=== PATIENT | male | born 1955 | race Caucasian/White ===

== ENCOUNTER 2024-10-12 06:48 | Outpatient (OUT) | payer MEDICARE, SELFPAY ==
--- NOTE | 2024-10-12 06:53 | US_ITS ---
The [address] [address] Patient Name: IGNACIO BURRIS MRN: [id number] date: 1955 Sex: M Assigned Patient Location: [place] Current Patient Location: Accession/Order Number: [id number] Exam Date: 10/12/2024 07:03 Report Date: 10/12/2024 11:53 At the request of: KYLE FOY Procedure: US aorta EXAM: US aorta HISTORY: Smoking. TECHNIQUE: Ultrasound was performed of the abdominal aorta. COMPARISON: None. FINDINGS: AORTA: Proximal 3.6 cm; mid 3.2 cm; distal 3.1 cm ILIAC ARTERIES: Maximum diameter 1.5 cm on right, 1.7 cm on left. OTHER: Negative. US/US aorta IMPRESSION: 1. No appreciable aneurysmal dilation of the distal abdominal aorta. Electronically authenticated by: YAIMA CARTAGENA Date: 10/12/2024 11:53
--- NOTE | 2024-10-12 06:53 | CT_ITS ---
[address] [address] Patient Name: IGNACIO BURRIS MRN: [id number] date: 1955 Sex: M Assigned Patient Location: [place] Current Patient Location: Accession/Order Number: [id number] Exam Date: 10/12/2024 07:01 Report Date: 10/13/2024 06:23 At the request of: KYLE FOY Procedure: CT lung screening low-dose EXAMINATION: CT lung screening low-dose HISTORY: Nicotine Dependence COMPARISON: No relevant comparison available. TECHNIQUE: Axial, Coronal, and Sagittal images were created without the administration of IV contrast material. Dose reduction techniques were achieved by using automated exposure control and/or adjustment of mA and/or kV according to patient size and/or use of iterative reconstruction technique. FINDINGS: LUNGS: No visible pulmonary disease. PLEURA: No mass, effusion, or pneumothorax. VASCULATURE: No abnormality. RASHAD: No mass or pathologic adenopathy. MEDIASTINUM: No mass or pathologic adenopathy. CARDIAC: No enlargement, pericardial thickening, or pericardial effusion. Coronary Artery calcifications: AORTA: No aneurysm or dissection. CHEST WALL: No mass or axillary adenopathy BONES: No bone lesion or fracture. LIMITED ABDOMEN: Dilated calyces within the visible upper pole of right kidney and suspected adjacent small amount of perinephric edema. Limited images of the upper abdomen. OTHER: Negative. CT/CT lung screening low-dose IMPRESSION: 1. Lung-RADS Category 1 Negative. No nodules and definitely benign nodules. Continue annual screening with LDCT in 12 months. 2. Suspect right hydronephrosis. Consider CT abdomen and pelvis without and with IV contrast for further evaluation. Electronically authenticated by: YAIMA CARTAGENA Date: 10/13/2024 06:23
== END 2024-10-12 06:49 | disposition home or self-care (01) ==
LOC: US 06:48
PROVIDERS: PCP Family Medicine; Visit Provider Family Medicine
DX: N13.30 Unspecified hydronephrosis (principal); F17.200 Nicotine dependence, unspecified, uncomplicated; Z12.2 Encounter for screening for malignant neoplasm of respiratory organs; F17.211 Nicotine dependence, cigarettes, in remission
CPT/HCPCS: 71271; 76706